=== PATIENT | female | born 1940 | race Two or more races ===

== ENCOUNTER 2017-12-22 10:48 | Day surgery (SDC) | payer MEDICARE ==
[~2017-12-22] VITALS: Ht 172.7 cm; Wt 113.8 kg
[~2017-12-22 10:48] MED LIST: ASPI81CH PO; ASPI81EC PO; FENO67 PO; FISH1000 PO; FLAX PO; IBUP600 PO; LISHYD2025 PO; LISI20 PO; LOVASTATIN PO; MECL12.5 PO; OMEP20ER PO; UBID10 PO; VITAMIN D PO; VITB100 PO
[2017-12-22] MEDS ORDERED: OXYC5 PO (20:06)
[2017-12-23 04:45] LABS: Hematocrit 35.4 % (33.0-51.0); Hemoglobin 11.3 g/dL (11.5-16.0)
[2017-12-23] MEDS ORDERED: OXYC5 PO (14:56)
[2018-06-24] MEDS ORDERED: LOSA50 PO (13:00)
[2018-06-24] MEDS ORDERED: Vitamin A and1 EACH PO (13:01)
[2018-06-24] MEDS ORDERED: KRILL OIL 1,001 EAC1 PO (13:02)
== END 2017-12-23 15:17 | disposition home or self-care (01) ==
LOC: ORSCMMR 10:48 → ORD 12:30 → SURS 19:23 → ORSCMMR 19:23 → SURS 12-23 15:17
PROVIDERS: Orthopaedic Surgery
PROC: 0LQ20ZZ Repair Left Shoulder Tendon, Open Approach (ICD-10-PCS; principal; 2017-12-22 12:30)
PROC: 0PSD04Z Reposition Left Humeral Head with Internal Fixation Device, Open Approach (ICD-10-PCS; principal; 2017-12-22 12:30)
DX: S42.252A Displaced fracture of greater tuberosity of left humerus, initial encounter for closed fracture (principal); M75.122 Complete rotator cuff tear or rupture of left shoulder, not specified as traumatic; I10 Essential (primary) hypertension; K21.9 Gastro-esophageal reflux disease without esophagitis; E66.01 Morbid (severe) obesity due to excess calories; Z68.38 Body mass index [BMI] 38.0-38.9, adult; Z79.82 Long term (current) use of aspirin; Z79.899 Other long term (current) drug therapy
CPT/HCPCS: 36415; 85014; 85018; 86850; 86900; 86901; C1713; C1769; J0171; J0360; J0690; J1100; J1885; J2250; J2370; J2405; J2710; J3010; J7030; J7120

== ENCOUNTER 2019-03-21 07:04 | Day surgery (SDC) | payer MEDICARE ==
[~2019-03-21] VITALS: Wt 122.5 kg
[~2019-03-21 07:04] MED LIST changes: +KRILL OIL 1,001 EAC1 PO; +LOSA50 PO; +OXYC5 PO; +Vitamin A and1 EACH PO; +ZESTORETIC 20-1 EAC1 PO
--- NOTE | 2019-03-21 08:37 | NUR ---
03/21/19 0837 Shady Martin PATIENT DETERMINED TO BE ASA APPROPRIATE FOR MOD SEDATION PRIOR TO START OF PROCEDURE BY . 3-LEAD EKG REVIEWED WITH PHYSICIAN PRIOR TO START OF PROCEDURE.PATIENT CONFIRMS NPO STATUS AND AGREES WITH SCHEDULED PROCEDURE.History, Chart, Medications and Allergies reviewed before start of procedure.O2
--- NOTE | 2019-03-21 10:03 | NUR ---
Discharge instructions reviewed with patient. Patient verbalizes understanding. Copy given to patient to take home. Discharged via wheelchair to private car for ride home.
== END 2019-03-21 10:05 | disposition home or self-care (01) ==
LOC: ORSCMMR 07:04 → ORD 08:30 → ORSCMMR 08:30
PROVIDERS: Internal Medicine Gastroenterology
PROC: 0DBK8ZX Excision of Ascending Colon, Via Natural or Artificial Opening Endoscopic, Diagnostic (ICD-10-PCS; principal; 2019-03-21 08:30)
PROC: 0DBP8ZX Excision of Rectum, Via Natural or Artificial Opening Endoscopic, Diagnostic (ICD-10-PCS; principal; 2019-03-21 08:30)
PROC: 0DBM8ZX Excision of Descending Colon, Via Natural or Artificial Opening Endoscopic, Diagnostic (ICD-10-PCS; principal; 2019-03-21 08:30)
DX: Z12.11 Encounter for screening for malignant neoplasm of colon (principal); D12.4 Benign neoplasm of descending colon; D12.2 Benign neoplasm of ascending colon; D12.8 Benign neoplasm of rectum; K57.30 Diverticulosis of large intestine without perforation or abscess without bleeding; E11.9 Type 2 diabetes mellitus without complications; E78.1 Pure hyperglyceridemia; I10 Essential (primary) hypertension; E66.01 Morbid (severe) obesity due to excess calories; Z68.41 Body mass index [BMI] 40.0-44.9, adult
CPT/HCPCS: 82947; 88305; J2250; J3010; J7120

== ENCOUNTER → 2019-08-15 | Outpatient (CLI) | payer MEDICARE | END | disposition home or self-care (01) | LOC: LAB 13:30 → LAB SHORT 13:30 | DX: L02.412 Cutaneous abscess of left axilla (principal) | CPT/HCPCS: 87070; 87075; 87205 ==

== ENCOUNTER → 2020-07-16 | Outpatient (CLI) | payer MEDICARE | END | disposition home or self-care (01) | LOC: LAB 16:33 → LAB SHORT 16:33 | DX: B35.1 Tinea unguium (principal) | CPT/HCPCS: 88305; 88312 ==

== ENCOUNTER → 2023-06-26 | Outpatient (CLI) | payer MEDICARE ==
[2023-06-26 13:22] LABS: BASOPHILS ABSOLUTE AUTO 0.06 K/mm3 (0.00-0.23); BASOPHILS PERCENT AUTO 1 % (0-2); EOSINOPHILS ABSOLUTE AUTO 0.12 K/mm3 (0.00-0.68); EOSINOPHILS PERCENT AUTO 2 % (0-6); Hematocrit 37.8 % (33.0-51.0); Hemoglobin 12.3 g/dL (11.5-16.0); IMMATURE GRAN ABSOLUTE AUTO 0.03 K/mm3 (0.00-0.10); IMMATURE GRAN PERCENT AUTO 0 % (0-1); LYMPHOCYTES ABSOLUTE AUTO 1.37 K/mm3 (0.84-5.20); LYMPHOCYTES PERCENT AUTO 17 % (21-46); MONOCYTES ABSOLUTE AUTO 0.92 K/mm3 (0.16-1.47); MONOCYTES PERCENT AUTO 11 % (4-13); Mean Corpuscular HGB 28.5 pg (26.0-34.0); Mean Corpuscular HGB Conc 32.5 g/dL (31.5-36.5); Mean Corpuscular Volume 88 fL (80-100); Mean Platelet Volume 11.9 fL (9.1-12.4); NEUTROPHILS PERCENT AUTO 70 % (41-73); Platelet Count 171 K/mm3 (150-400); RDW Coefficient Variation 15.8 % (11.7-14.2); RDW Standard Deviation 50.9 fL (35.1-46.3); Red Blood Cell Count 4.31 M/mm3 (3.80-5.20)
[2023-06-26 13:26] LABS: Albumin, Blood 3.4 g/dL (3.4-5.0); Albumin/Globulin Ratio 0.9 (0.8-1.8); Bilirubin, Total 0.6 mg/dL (0.1-1.0); Bun/Creatinine Ratio 23.7 (12.0-20.0); Calcium, Blood 9.3 mg/dL (8.5-10.1); Creatinine, Blood 0.63 mg/dL (0.40-1.00); Globulin, Blood 3.8 g/dL (2.2-4.0); Potassium, Blood 4.4 mmol/L (3.5-5.5); Total Protein, Blood 7.2 g/dL (6.4-8.2)
== END | disposition home or self-care (01) ==
LOC: LAB 11:25 → LAB SHORT 11:25
PROVIDERS: Physician Assistant
DX: R06.00 Dyspnea, unspecified (principal); R05.1 Acute cough
CPT/HCPCS: 80053; 83880; 85025

== ENCOUNTER 2023-07-02 11:32 | Inpatient (IN) | payer MEDICARE ==
[~2023-07-02] VITALS: Ht 172.7 cm; Wt 117.9 kg
[2023-07-02 12:10] LABS: BASOPHILS ABSOLUTE AUTO 0.08 K/mm3 (0.00-0.23); BASOPHILS PERCENT AUTO 1 % (0-2); EOSINOPHILS ABSOLUTE AUTO 0.01 K/mm3 (0.00-0.68); EOSINOPHILS PERCENT AUTO 0 % (0-6); Hematocrit 41.1 % (33.0-51.0); Hemoglobin 13.1 g/dL (11.5-16.0); IMMATURE GRAN ABSOLUTE AUTO 0.06 K/mm3 (0.00-0.10); IMMATURE GRAN PERCENT AUTO 0 % (0-1); LYMPHOCYTES ABSOLUTE AUTO 1.87 K/mm3 (0.84-5.20); LYMPHOCYTES PERCENT AUTO 13 % (21-46); MONOCYTES ABSOLUTE AUTO 1.47 K/mm3 (0.16-1.47); MONOCYTES PERCENT AUTO 10 % (4-13); Mean Corpuscular HGB 27.9 pg (26.0-34.0); Mean Corpuscular HGB Conc 31.9 g/dL (31.5-36.5); Mean Corpuscular Volume 88 fL (80-100); NEUTROPHILS ABSOLUTE AUTO 11.04 K/mm3 (1.96-9.15); NEUTROPHILS PERCENT AUTO 76 % (41-73); Platelet Count 260 K/mm3 (150-400); RDW Coefficient Variation 15.2 % (11.7-14.2); RDW Standard Deviation 48.6 fL (35.1-46.3); Red Blood Cell Count 4.69 M/mm3 (3.80-5.20); White Blood Cell Count 14.53 K/mm3 (4.00-11.30)
[2023-07-02] MEDS ORDERED: HYDCHL25 PO (12:14)
[2023-07-02] MEDS ORDERED: Ventolin/Prove6.7 GM INH (12:14)
[2023-07-02] MEDS ORDERED: METFORMIN HCL500 M2 PO (12:14)
[2023-07-02] MEDS ORDERED: LOSA50 PO (12:15)
[2023-07-02] MEDS ORDERED: FOSAMAX70 MG PO (12:15)
[2023-07-02] MEDS ORDERED: ROSUVASTATIN CAL5 MG PO (12:15)
[2023-07-02 12:33] LABS: Albumin, Blood 3.5 g/dL (3.4-5.0); Albumin/Globulin Ratio 0.9 (0.8-1.8); Bun/Creatinine Ratio 20.9 (12.0-20.0); Calcium, Blood 10.2 mg/dL (8.5-10.1); Creatinine, Blood 0.81 mg/dL (0.40-1.00); Globulin, Blood 3.8 g/dL (2.2-4.0); Total Protein, Blood 7.3 g/dL (6.4-8.2)
[2023-07-02 18:47] VITALS: BP 130/52
--- NOTE | 2023-07-02 22:32 | NUR ---
PATIENT IS A NEW ADMIT ON DAY SHIFT RIGHT BEFORE SHIFT CHANGE. AXOX 4 AND INDEPENDENT IN ROOM. ON 2L O2 NC AND RA BASELINE. SPOUSE PRESENT FOR A FEW HOURS. RT IN TO SETUP HOME CPAP. PATIENT REPORTS DRY COUGH AFTER BREATHING TX. CBG 249. DENIES CHEST PAIN AND N/V. WATCHING TV RESTING IN BED. WCTM.
--- NOTE | 2023-07-03 04:13 | NUR ---
SHIFT SUMMARY PATIENT HAD NO ACUTE CHANGES. AXOX 4 AND INDEPENDENT IN ROOM. ON 2L O2 NC. CBG 249. USING HOME CPAP SETUP BY RT. RT IN FOR BREATHING TX. REPORTS NEW DRY COUGH. VSS/AFEBRILE. DENIES CHEST PAIN, SOB, AND N/V. MILDLY ANXIOUS T/O SHIFT AND AWAKE MOST OF THE SHIFT. CALL LIGHT IN REACH. BED IN LOWEST POSITION. WILL CONTINUE TO MONITOR UNTIL DAY SHIFT NURSE ASSUMES CARE.
[2023-07-03 04:55] VITALS: BP 142/57
[2023-07-03 04:57] LABS: BASOPHILS ABSOLUTE AUTO 0.04 K/mm3 (0.00-0.23); BASOPHILS PERCENT AUTO 0 % (0-2); EOSINOPHILS PERCENT AUTO 0 % (0-6); Hematocrit 38.1 % (33.0-51.0); Hemoglobin 12.3 g/dL (11.5-16.0); IMMATURE GRAN PERCENT AUTO 1 % (0-1); LYMPHOCYTES ABSOLUTE AUTO 1.46 K/mm3 (0.84-5.20); LYMPHOCYTES PERCENT AUTO 8 % (21-46); MONOCYTES PERCENT AUTO 12 % (4-13); Mean Corpuscular HGB 27.9 pg (26.0-34.0); Mean Corpuscular HGB Conc 32.3 g/dL (31.5-36.5); Mean Corpuscular Volume 86 fL (80-100); NEUTROPHILS ABSOLUTE AUTO 15.38 K/mm3 (1.96-9.15); NEUTROPHILS PERCENT AUTO 80 % (41-73); Platelet Count 256 K/mm3 (150-400); RDW Coefficient Variation 15.3 % (11.7-14.2); RDW Standard Deviation 48.8 fL (35.1-46.3); Red Blood Cell Count 4.41 M/mm3 (3.80-5.20); White Blood Cell Count 19.28 K/mm3 (4.00-11.30)
[2023-07-03 06:49] LABS: Alanine Aminotransfer (ALT/SGP 23 U/L (12-78); Albumin, Blood 3.2 g/dL (3.4-5.0); Albumin/Globulin Ratio 0.8 (0.8-1.8); Alk Phos 104 U/L (50-136); Anion Gap 8 mmol/L (6-16); Aspartate Aminotrans (AST/SGOT 29 U/L (12-37); Bilirubin, Total 0.8 mg/dL (0.1-1.0); Blood Urea Nitrogen 30 mg/dL (8-24); Bun/Creatinine Ratio 31.9 (12.0-20.0); CHOL/HDL RATIO 2.3; CO2, Blood 25 mmol/L (21-32); Calcium, Blood 9.9 mg/dL (8.5-10.1); Chloride, Blood 106 mmol/L (98-108); Cholesterol 108 mg/dL (50-200); Creatinine, Blood 0.94 mg/dL (0.40-1.00); Glomerular Filtration Rate 61 (60-); Glucose, Blood 122 mg/dL (70-99); HDL Cholesterol 46 mg/dL (>39); LDL/HDL RATIO 0.8; Low Density Lipoprotein Chol 38 mg/dL (0-110); Magnesium, Blood 1.5 mg/dL (1.6-2.4); Potassium, Blood 4.1 mmol/L (3.5-5.5); Sodium, Blood 139 mmol/L (136-145); Total Protein, Blood 7.2 g/dL (6.4-8.2); Triglycerides 118 mg/dL (30-160); Very Low Density Lipoprot Chol 23 mg/dL (6-32)
[2023-07-03 07:41] VITALS: BP 122/65
[2023-07-03 15:57] VITALS: BP 129/92
--- NOTE | 2023-07-03 17:56 | NUR ---
SHIFT SUMMARY: PATIENT A&OX4. PLEASANT AND COOPERATIVE c CARE. USES CALL LIGHT APPROPRIATELY AND ABLE TO MAKE NEEDS KNOWN. PATIENT DENIES CP/PRESSURE, SOB, N/V. PATIENT ON 2L OF O2 VIA NC c SPO2 RANGES 93-95% AND ON CONTINUES PULSE OX. PATIENT REPORTS DRY NON PRODUCTIVE COUGH, MEDICATED X1 c PO TESSALON WILL, PER PATIENT "HELPS A LITTLE BIT." LUNGS CLEAR/DIM T/O TO AUSCULTATIONS. ECHO DONE TODAY, AWAITING FOR RESULT. BS RANGES 118-171, RECEIVED INSULIN PER [facility] COVERAGE. PATIENT AMBULATES TO BATHROOM AND BACK IN BED INDEPENDENTLY. EATING AND DRINKING WELL. RECEIVED SCHEDULED MEDS PER EMAR. VITAL SIGNS REVIEWED. PIV TO R HAND SALINE LOCKED. CALL LIGHT IN REACH. PATIENT EDUCATED ON NON SMOKING POLICY, RISK OF INJURY AND IGNITION SOURCES WHEN O2 IS IN USE. PATIENT DENIES SMOKING AND VERBALIZED UNDERSTANDING.
[2023-07-03 20:41] VITALS: BP 120/52
[2023-07-04 05:01] LABS: BASOPHILS ABSOLUTE AUTO 0.06 K/mm3 (0.00-0.23); BASOPHILS PERCENT AUTO 0 % (0-2); EOSINOPHILS ABSOLUTE AUTO 0.05 K/mm3 (0.00-0.68); EOSINOPHILS PERCENT AUTO 0 % (0-6); Hemoglobin 12.6 g/dL (11.5-16.0); IMMATURE GRAN ABSOLUTE AUTO 0.11 K/mm3 (0.00-0.10); IMMATURE GRAN PERCENT AUTO 1 % (0-1); LYMPHOCYTES ABSOLUTE AUTO 2.43 K/mm3 (0.84-5.20); LYMPHOCYTES PERCENT AUTO 13 % (21-46); MONOCYTES PERCENT AUTO 11 % (4-13); Mean Corpuscular HGB 28.1 pg (26.0-34.0); Mean Corpuscular HGB Conc 32.3 g/dL (31.5-36.5); Mean Corpuscular Volume 87 fL (80-100); Mean Platelet Volume 11.1 fL (9.1-12.4); NEUTROPHILS ABSOLUTE AUTO 14.62 K/mm3 (1.96-9.15); NEUTROPHILS PERCENT AUTO 75 % (41-73); Platelet Count 296 K/mm3 (150-400); RDW Coefficient Variation 15.2 % (11.7-14.2); RDW Standard Deviation 48.8 fL (35.1-46.3); Red Blood Cell Count 4.49 M/mm3 (3.80-5.20); White Blood Cell Count 19.47 K/mm3 (4.00-11.30)
--- NOTE | 2023-07-04 05:17 | NUR ---
SUMMARY- NO ACUTE EVENTS THIS SHIFT. INDEPENDENT IN ROOM. PT ON 2 L NC CONTINUOUS. AAOX4.
[2023-07-04 05:39] LABS: Anion Gap 7 mmol/L (6-16); Blood Urea Nitrogen 31 mg/dL (8-24); Bun/Creatinine Ratio 42.3 (12.0-20.0); CO2, Blood 26 mmol/L (21-32); Calcium, Blood 9.5 mg/dL (8.5-10.1); Chloride, Blood 104 mmol/L (98-108); Creatinine, Blood 0.73 mg/dL (0.40-1.00); Glomerular Filtration Rate 83 (60-); Glucose, Blood 110 mg/dL (70-99); Magnesium, Blood 1.7 mg/dL (1.6-2.4); Phosphorus, Blood 2.3 mg/dL (2.5-4.9); Potassium, Blood 3.8 mmol/L (3.5-5.5); Sodium, Blood 137 mmol/L (136-145)
[2023-07-04 07:37] VITALS: BP 117/65
[2023-07-04 15:52] VITALS: BP 139/68
--- NOTE | 2023-07-04 17:48 | NUR ---
SHIFT SUMMARY: NO NEW ACUTE CHANGES IN PATIENT CONDITION THIS SHIFT. PATIENT IS A&OX4. PLEASANT AND COOPERATIVE c CARE. USES CALL LIGHT APPROPRIATELY AND ABLE TO MAKE NEEDS KNOWN. DENIES CP/PRESSURE, SOB, N/V AND GENERALIZED PAIN. PATIENT REPORTS NOT HAVE A GOOD NIGHT SLEPT LAST NIGHT AND TIRED THIS AM D/T COUGH ON AND OFF T/O THE NIGHT. PATIENT SLEPT FOR ABOUT 2 HRS THIS PM AND REPORTS FEELING BETTER. PATIENT ON 1L OF O2 c SPO2 RANGES 92-95%, DRY NON PRODUCTIVE COUGH. ENCOURAGE PATIENT TO DO DEEP BREATHING EXCERCISE AND PROVIDED c PICKLE DEVICE WHEN AWAKE. PATIENT HAS BEEN USING IT T/O SHIFT. BS 124-166, RECEIVED INSULIN PER [facility] COVERAGE. RECEIVED SCHEDULED MEDS PER EMAR. PATIENT HAS BEEN AMBULATING TO BATHROOM AND BACK IN BED/CHAIR INDEPENDENTLY T/O SHIFT. PATIENT IS EATING AND DRINKING WELL. VITAL SIGNS REVIEWED. PIV TO R HAND SALINE LOCKED. CALL LIGHT IN REACH. PATIENT EDUCATED ON NON SMOKING POLICY, RISK OF INJURY, AND IGNITION SOURCES WHEN O2 IS IN USE. PATIENT DENIES SMOKING AND VERBALIZED UNDERSTANDING.
[2023-07-04 20:06] VITALS: BP 134/76
[2023-07-05 03:30] VITALS: BP 118/63
--- NOTE | 2023-07-05 05:36 | NUR ---
SUMMARY- NO ACUTE EVENTS OR CHANGES OVERNIGHT. PT IS ON 1 L NC.
[2023-07-05 06:34] LABS: BASOPHILS ABSOLUTE AUTO 0.08 K/mm3 (0.00-0.23); BASOPHILS PERCENT AUTO 0 % (0-2); EOSINOPHILS ABSOLUTE AUTO 0.05 K/mm3 (0.00-0.68); EOSINOPHILS PERCENT AUTO 0 % (0-6); Hematocrit 38.9 % (33.0-51.0); Hemoglobin 12.5 g/dL (11.5-16.0); IMMATURE GRAN ABSOLUTE AUTO 0.11 K/mm3 (0.00-0.10); IMMATURE GRAN PERCENT AUTO 1 % (0-1); LYMPHOCYTES PERCENT AUTO 15 % (21-46); MONOCYTES ABSOLUTE AUTO 1.79 K/mm3 (0.16-1.47); MONOCYTES PERCENT AUTO 10 % (4-13); Mean Corpuscular HGB 28.2 pg (26.0-34.0); Mean Corpuscular HGB Conc 32.1 g/dL (31.5-36.5); Mean Corpuscular Volume 88 fL (80-100); Mean Platelet Volume 10.7 fL (9.1-12.4); NEUTROPHILS ABSOLUTE AUTO 13.51 K/mm3 (1.96-9.15); NEUTROPHILS PERCENT AUTO 74 % (41-73); Platelet Count 307 K/mm3 (150-400); RDW Coefficient Variation 14.9 % (11.7-14.2); RDW Standard Deviation 48.3 fL (35.1-46.3); Red Blood Cell Count 4.43 M/mm3 (3.80-5.20); White Blood Cell Count 18.24 K/mm3 (4.00-11.30)
[2023-07-05 06:56] LABS: Albumin, Blood 2.8 g/dL (3.4-5.0); Anion Gap 6 mmol/L (6-16); Blood Urea Nitrogen 33 mg/dL (8-24); CO2, Blood 27 mmol/L (21-32); Calcium, Blood 9.2 mg/dL (8.5-10.1); Chloride, Blood 105 mmol/L (98-108); Creatinine, Blood 0.72 mg/dL (0.40-1.00); Glomerular Filtration Rate 84 (60-); Glucose, Blood 103 mg/dL (70-99); Phosphorus, Blood 3.1 mg/dL (2.5-4.9); Potassium, Blood 3.8 mmol/L (3.5-5.5); Sodium, Blood 138 mmol/L (136-145)
[2023-07-05 08:13] VITALS: BP 122/42
[2023-07-05 08:15] VITALS: BP 130/70
[2023-07-05 15:52] VITALS: BP 111/49
--- NOTE | 2023-07-05 16:49 | NUR ---
SHIFT SUMMARY: NO NEW ACUTE CHANGES IN PATIENT CONDITION THIS SHIFT. ON 1L OF O2 VIA NC c SPO2 RANGES 90-94%. HOME O2 EVAL DONE TO DAY, PER RT PATIENT NEEDED 2L OF O2 c AMBULATION. DC HOME TOMORROW c O2. A&OX4. PLEASANT AND COOPERATIVE c CARE. PATIENT AMBULATES TO BATHROOM AND BACK IN BED/CHAIR INDEPENDENTLY T/O SHIFT. RECEIVED SCHEDULED MEDS PER EMAR. VITAL SIGNS REVIEWED. CALL LIGHT IN REACH. PATIENT EDUCATED ON NON SMOKING POLICY, RISK OF INJURY AND IGNITION SOURCES WHEN O2 IS IN USE. PATIENT DENIES SMOKING AND VERBALIZED UNDERSTANDING.
[2023-07-05 21:34] VITALS: BP 131/70
[2023-07-06 04:55] VITALS: BP 129/72
--- NOTE | 2023-07-06 05:35 | NUR ---
SUMMARY: PT A/OX4, INDEPENDENT AND CALLS APPROPRIATELY TO SPECIFY NEEDS. SHE REMAINS ON 1L O2 VIA NC W/TITRATION TO 2L FOR AMBULATION PER HOME O2 EVAL. HYDRAULIC TECHNICIAN COUGH PERSISTS BUT LS CLEAR T/O AND DIM IN BASES. PT REFUSED JANUSZ HOSE D/T RECENT R.GREAT TOE INJURY, MUPIROCIN OINTMENT AND NEW BANDAGE APPLIED. NO ACUTE CHANGES, VSS/AFEBRILE. POSSIBLE D/C TODAY. WCTM AND REPORT TO DAY RN.
[2023-07-06 08:09] VITALS: BP 114/84
[2023-07-06 10:09] LABS: BASOPHILS ABSOLUTE AUTO 0.08 K/mm3 (0.00-0.23); BASOPHILS PERCENT AUTO 1 % (0-2); EOSINOPHILS ABSOLUTE AUTO 0.05 K/mm3 (0.00-0.68); EOSINOPHILS PERCENT AUTO 0 % (0-6); Hematocrit 41.2 % (33.0-51.0); IMMATURE GRAN ABSOLUTE AUTO 0.11 K/mm3 (0.00-0.10); IMMATURE GRAN PERCENT AUTO 1 % (0-1); LYMPHOCYTES ABSOLUTE AUTO 2.11 K/mm3 (0.84-5.20); LYMPHOCYTES PERCENT AUTO 14 % (21-46); MONOCYTES ABSOLUTE AUTO 1.58 K/mm3 (0.16-1.47); MONOCYTES PERCENT AUTO 10 % (4-13); Mean Corpuscular HGB 27.9 pg (26.0-34.0); Mean Corpuscular HGB Conc 31.6 g/dL (31.5-36.5); Mean Corpuscular Volume 88 fL (80-100); Mean Platelet Volume 10.8 fL (9.1-12.4); NEUTROPHILS PERCENT AUTO 75 % (41-73); Platelet Count 342 K/mm3 (150-400); RDW Coefficient Variation 14.8 % (11.7-14.2); RDW Standard Deviation 47.8 fL (35.1-46.3); Red Blood Cell Count 4.66 M/mm3 (3.80-5.20); White Blood Cell Count 15.63 K/mm3 (4.00-11.30)
[2023-07-06 10:28] LABS: Albumin, Blood 2.9 g/dL (3.4-5.0); Albumin/Globulin Ratio 0.7 (0.8-1.8); Bilirubin, Total 0.7 mg/dL (0.1-1.0); Bun/Creatinine Ratio 43.8 (12.0-20.0); Calcium, Blood 9.2 mg/dL (8.5-10.1); Creatinine, Blood 0.71 mg/dL (0.40-1.00); Globulin, Blood 3.9 g/dL (2.2-4.0); Potassium, Blood 3.7 mmol/L (3.5-5.5); Total Protein, Blood 6.8 g/dL (6.4-8.2)
[2023-07-06] MEDS ORDERED: AMOCLA875 PO (16:06)
[2023-07-06] MEDS ORDERED: BENZ100A PO (16:07)
[2023-07-06] MEDS ORDERED: Prednisone10 MG PO (16:10)
[2023-07-06] MEDS ORDERED: TIOT18 INH (16:10)
--- NOTE | 2023-07-06 17:42 | NUR ---
PT DISCHARGED HOME. DC INSTRUCTIONS AND EDUCATION MATERIAL EXPLAINED TO PT. MEDICATIONS FAXED TO [facility]. 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 IV DC'D. PT HELPED TO DRESS. PERSONAL BELONGINGS, INCLUDING HOME CPAP MACHINE, SENT WITH PT. MAGUI HERNANDEZVERED PORTABLE OXYGEN FOR RIDE HOME. PT HELPED TO APPLY NASAL CANULA. PT TAKEN BY WHEELCHAIR TO WAITING VEHICLE.
== END 2023-07-06 17:07 | disposition home or self-care (01) | DRG 190 ==
LOC: ER 11:32 → MEDS 11:33
PROVIDERS: Internal Medicine; Physician Assistant; ADMIT Family Medicine
DX: J44.1 Chronic obstructive pulmonary disease with (acute) exacerbation (principal); J18.9 Pneumonia, unspecified organism; J96.01 Acute respiratory failure with hypoxia; J44.0 Chronic obstructive pulmonary disease with (acute) lower respiratory infection; I10 Essential (primary) hypertension; E78.5 Hyperlipidemia, unspecified; M81.0 Age-related osteoporosis without current pathological fracture; E66.9 Obesity, unspecified; G47.33 Obstructive sleep apnea (adult) (pediatric); I87.2 Venous insufficiency (chronic) (peripheral); E11.51 Type 2 diabetes mellitus with diabetic peripheral angiopathy without gangrene; Z98.51 Tubal ligation status; Z89.512 Acquired absence of left leg below knee; Z79.899 Other long term (current) drug therapy; Z98.890 Other specified postprocedural states; Z87.81 Personal history of (healed) traumatic fracture; Z87.891 Personal history of nicotine dependence; Z79.84 Long term (current) use of oral hypoglycemic drugs; Z68.39 Body mass index [BMI] 39.0-39.9, adult
CPT/HCPCS: 36415; 80053; 80061; 80069; 82947; 83036; 83735; 83880; 84100; 84145; 84443; 85025; 94640; 94644; 94645; 94660; 94664; 94760; 94761; 94762; 99285-25; A9270; C8929; J0696; J1650; J7512; Q9957

== ENCOUNTER → 2025-07-18 | Outpatient (CLI) | payer OTHER ==
[~2025-07-18] MED LIST changes: +AMOCLA875 PO; +BENZ100A PO; +FOSAMAX70 MG PO; +HYDCHL25 PO; +METFORMIN HCL500 M2 PO; +Prednisone10 MG PO; +ROSUVASTATIN CAL5 MG PO; +TIOT18 INH; +Ventolin/Prove6.7 GM INH
[2025-07-18 20:25] LABS: Creatinine, Urine Random 194.0 mg/dL (27.00-270.00); Microalb/Creat Ratio UR, Rand 81.959 mg/g (0.000-30.000); Microalbumin, Random Urine 159.0 mg/L (0.000-20.000)
== END ==
LOC: LAB 15:54 → LAB SHORT 15:54
PROVIDERS: Family Medicine
DX: E11.22 Type 2 diabetes mellitus with diabetic chronic kidney disease (principal); E11.42 Type 2 diabetes mellitus with diabetic polyneuropathy; E11.51 Type 2 diabetes mellitus with diabetic peripheral angiopathy without gangrene; E11.65 Type 2 diabetes mellitus with hyperglycemia
CPT/HCPCS: 82043; 82570